=== PATIENT | male | born 1995 | race Hispanic/Latino ===

== ENCOUNTER 2018-03-04 18:50 | Emergency (ER) | payer OTHER ==
[~2018-03-04] VITALS: Ht 177.8 cm; Wt 88.0 kg
[2018-03-04] MEDS ORDERED: LIDOCAINE HCL 1% LOCAL INJ 20 ML VIAL INJ STA (19:21)
[2018-03-04] MEDS ORDERED: TETANUS/DIPHTHERIA TOX ADULT 0.5 ML SYR IM ONE (19:30)
[2018-03-04 20:54] VITALS: BP 147/90
== END 2018-03-04 20:52 | disposition home or self-care (01) ==
LOC: FSED 18:50
DX: S61.222A Laceration with foreign body of right middle finger without damage to nail, initial encounter (principal); Z23 Encounter for immunization; Y92.89 Other specified places as the place of occurrence of the external cause; W26.9XXA Contact with unspecified sharp object(s), initial encounter
CPT/HCPCS: 12001; 90714; 99284; J2001